=== PATIENT | male | born 1940 | race Caucasian/White ===

== ENCOUNTER → 2020-01-15 09:22 | Outpatient (CLI) | payer MEDICARE | END | disposition home or self-care (01) | LOC: D.CT 09:22 | PROVIDERS: ATTEND Family Medicine | DX: D35.00 Benign neoplasm of unspecified adrenal gland (principal); R91.8 Other nonspecific abnormal finding of lung field; Q60.0 Renal agenesis, unilateral ==

== ENCOUNTER → 2020-07-26 08:01 | Outpatient (CLI) | payer MEDICARE | END | disposition home or self-care (01) | LOC: D.CT 07-19 13:30 | PROVIDERS: ATTEND Family Medicine | DX: R91.8 Other nonspecific abnormal finding of lung field (principal); D35.00 Benign neoplasm of unspecified adrenal gland ==